=== PATIENT | male | born 1950 | race African-American/Black ===

== ENCOUNTER 2017-02-10 06:38 | Inpatient (IN) | payer OTHER, MEDICAID ==
[2017-02-10] VITALS (13 sets, daily range): BP systolic 137–166; BP diastolic 68–117
[~2017-02-10] VITALS: Ht 185.4 cm; Wt 106.6 kg
[~2017-02-10 06:38] MED LIST: ASPI-867 PO; CLOP75TA2 PO; DOCU250C69 PO; LISI-604 PO; SIMV20TA6 PO
[2017-02-10] MEDS ORDERED: METO50TA5 PO (07:32)
[2017-02-10] MEDS ORDERED: CILO100T PO (07:32)
[2017-02-10] MEDS ORDERED: HYDR-519 PO (08:08)
[2017-02-10] MEDS ORDERED: IODIXANOL 320MG/ML 100 ML BOTTLE IV ONE (08:20)
[2017-02-10] MEDS ORDERED: LIDOCAINE HCL 1% 20ML VIAL (Pyxis) INJ ONE (08:21)
[2017-02-10] MEDS ORDERED: FENTANYL CITRATE/PF 50MCG/ML 2ML VIAL ONE (08:22)
[2017-02-10] MEDS ORDERED: MIDAZOLAM HCL 5 MG/5 ML VIAL ONE (08:22)
[2017-02-10] MEDS ORDERED: HEPARIN SODIUM 1,000 UNIT/1ML VIAL IV ONE ×2 (09:26→09:40)
[2017-02-10] MEDS ORDERED: IOVERSOL 240MG/ML 100ML BOTTLE IV ONE (09:58)
[2017-02-10] MEDS ORDERED: CLOPIDOGREL 75MG TABLET ONE (10:31)
[2017-02-10] MEDS ORDERED: ACETAMINOPHEN 325MG TABLET PO PRN (10:45)
[2017-02-10] MEDS ORDERED: ATROPINE SULFATE 1MG/10ML SYR IV PRN (10:45)
[2017-02-10] MEDS: HYDROCODONE/ACETAMINOPHEN 10/325MG TABLET PO PRN ×2 (12:12→21:06)
[2017-02-10] MEDS: METOPROLOL TARTRATE 50MG TABLET PO SCH (16:17)
[2017-02-10] MEDS: DOCUSATE SODIUM 250MG CAPSULE PO SCH (16:17)
[2017-02-10] MEDS ORDERED: MEDICATION NOT ON FORMULARY EA (Simvastatin 20 MG) PO SCH (21:00)
[2017-02-10] MEDS ORDERED: ATORVASTATIN CALCIUM 10MG TABLET PO SCH (21:00)
[2017-02-11] VITALS (7 sets, daily range): BP systolic 137–166; BP diastolic 63–90
[2017-02-11 06:24] LABS: BASOPHILS % 0.6 % (0.0-2.0); EOSINOPHILS % 1.7 % (0.0-5.0); HEMATOCRIT. 36.1 % (42.0-52.0); HEMOGLOBIN. 12.3 g/dL (14.0-18.0); LYMPHOCYTES % 29.6 % (20.0-50.0); MEAN CORPUSCULAR HEMOGLOBIN 31.1 pg (28.0-32.0); MEAN CORPUSCULAR VOLUME 91.6 fL (80.0-94.0); NEUTROPHILS % 59.1 % (40.0-76.0); PLATELET 122 x1000/uL (130-400); RED BLOOD CELL COUNT 3.94 mill/uL (4.7-6.1); RED CELL DISTRIBUTION WIDTH 14.1 % (11.6-14.6); WHITE BLOOD COUNT 6.5 x1000/uL (4.5-11.0)
[2017-02-11 06:46] LABS: ANION GAP 9; CALCIUM 8.1 mg/dL (8.5-10.1); CARBON DIOXIDE 28 mEq/L (21-32); CHLORIDE 108 mEq/L (98-107); INDEX HEMOLYSI 1 (1-3); INDEX ICTERIC 1 (1-4); INDEX LIPEMIC 1 (1-3); UREA NITROGEN BLOOD 15 mg/dL (7-21); eGFR > 60 mL/min (>60)
[2017-02-11] MEDS: DOCUSATE SODIUM 250MG CAPSULE PO SCH (08:05)
[2017-02-11] MEDS: HYDROCODONE/ACETAMINOPHEN 10/325MG TABLET PO PRN (08:05)
[2017-02-11] MEDS: METOPROLOL TARTRATE 50MG TABLET PO SCH (08:06)
[2017-02-11] MEDS ORDERED: LISINOPRIL 20MG TABLET PO SCH (09:00)
[2017-02-11] MEDS ORDERED: CLOPIDOGREL 75MG TABLET PO SCH (09:00)
[2017-02-11] MEDS ORDERED: ASPIRIN 325MG EC TABLET PO SCH (09:00)
== END 2017-02-11 10:45 | disposition home or self-care (01) | DRG 253 ==
LOC: CCL 06:38 → 3WST 06:39
PROVIDERS: ADMIT Specialist; ATTEND Specialist
PROC: 047L3Z1 Dilation of Left Femoral Artery using Drug-Coated Balloon, Percutaneous Approach (ICD-10-PCS; principal; 2017-02-10)
DX: I73.9 Peripheral vascular disease, unspecified (principal); T82.856A Stenosis of peripheral vascular stent, initial encounter; E66.09 Other obesity due to excess calories; E78.5 Hyperlipidemia, unspecified; I13.10 Hypertensive heart and chronic kidney disease without heart failure, with stage 1 through stage 4 chronic kidney disease, or unspecified chronic kidney disease; I25.10 Atherosclerotic heart disease of native coronary artery without angina pectoris; I71.4 Abdominal aortic aneurysm, without rupture; N18.2 Chronic kidney disease, stage 2 (mild); Y83.8 Other surgical procedures as the cause of abnormal reaction of the patient, or of later complication, without mention of misadventure at the time of the procedure; Z79.02 Long term (current) use of antithrombotics/antiplatelets; Z79.82 Long term (current) use of aspirin; I25.2 Old myocardial infarction; Z87.891 Personal history of nicotine dependence; Z95.1 Presence of aortocoronary bypass graft; Z68.31 Body mass index [BMI] 31.0-31.9, adult; Z88.0 Allergy status to penicillin; Z91.010 Allergy to peanuts
CPT/HCPCS: 36415; 37224; 75710; 80048; 85025; 85347; C1725; C1760; C1769; C1893; C1894; J1644; J2250; J3010; J3490; Q9967

== ENCOUNTER 2017-04-14 10:43 | Day surgery (SDC) | payer OTHER, MEDICAID ==
[~2017-04-14] VITALS: Ht 185.4 cm; Wt 105.7 kg
[~2017-04-14 10:43] MED LIST changes: +CILO100T PO; +HYDR-519 PO; +METO50TA5 PO
[2017-04-14] MEDS ORDERED: OMEP40CA34 PO (11:38)
[2017-04-14] MEDS ORDERED: RA COL RITE PO (11:38)
[2017-04-14] MEDS ORDERED: HYDR25TA PO (11:38)
[2017-04-14] MEDS ORDERED: LOSA50TA20 PO (11:38)
[2017-04-14] MEDS ORDERED: eliquis PO (11:41)
[2017-04-14] MEDS ORDERED: IODIXANOL 320MG/ML 100 ML BOTTLE IV ONE (12:50)
[2017-04-14] MEDS ORDERED: LIDOCAINE HCL 1% 20ML VIAL (Pyxis) INJ ONE (12:50)
[2017-04-14] MEDS ORDERED: MIDAZOLAM HCL 2 MG/2 ML VIAL ONE (12:50)
[2017-04-14] MEDS ORDERED: FENTANYL CITRATE/PF 50MCG/ML 2ML VIAL ONE (12:50)
[2017-04-14] MEDS ORDERED: HYDROMORPHONE HCL/PF 2MG/ML (OR) ONE (13:07)
[2017-04-14] MEDS ORDERED: ACETAMINOPHEN 325MG TABLET PO PRN (14:00)
== END 2017-04-14 18:00 | disposition home or self-care (01) ==
LOC: CCL 10:43
PROVIDERS: ATTEND Specialist
DX: I70.211 Atherosclerosis of native arteries of extremities with intermittent claudication, right leg (principal); I73.89 Other specified peripheral vascular diseases; I25.10 Atherosclerotic heart disease of native coronary artery without angina pectoris; I10 Essential (primary) hypertension; E78.5 Hyperlipidemia, unspecified; E66.9 Obesity, unspecified; Z87.891 Personal history of nicotine dependence
CPT/HCPCS: 36246; 75710; C1760; C1769; C1893; J1170; J1644; J2250; J3010; J3490; Q9967

== ENCOUNTER 2018-10-26 09:59 | Inpatient (IN) | payer OTHER, MEDICAID ==
[~2018-10-26] VITALS: Ht 185.4 cm; Wt 89.2 kg
[~2018-10-26 09:59] MED LIST changes: +ASA5EC PO; -ASPI-867 PO; +CLOP75TA16 PO; -CLOP75TA2 PO; +HYDR25TA PO; +LOSA50TA20 PO; +METO-539 PO; -METO50TA5 PO; +OMEP40CA34 PO; +RA COL RITE PO
[2018-10-26] MEDS ORDERED: MORPHINE SULFATE 4 MG/ML CPJ (NOT FOR IM USE) IV ONE (13:15)
[2018-10-26] MEDS ORDERED: SODIUM CHLORIDE 0.9% 1,000 ML IV ONE (13:28)
[2018-10-26 14:11] LABS: CLARITY URINE CLEAR (CLEAR); COLOR URINE YELLOW (YELLOW); KETONES URINE NEGATIVE (NEGATIVE); LEUKOCYTE ESTERASE URINE TRACE (NEGATIVE); NITRITE URINE NEGATIVE (NEGATIVE); OCCULT BLOOD URINE NEGATIVE (NEGATIVE); PH URINE 5.5 (4.5-8.0); PROTEIN URINE NEGATIVE (NEGATIVE); SPECIFIC GRAVITY URINE 1.021 (1.005-1.030)
[2018-10-26] MEDS ORDERED: ONDANSETRON HCL 4MG/2ML INJ IV PRN (14:15)
[2018-10-26] MEDS ORDERED: DIPHENHYDRAMINE 50MG/ML VIAL IV PRN (14:15)
[2018-10-26] MEDS ORDERED: IPRATROPIUM/ALBUTEROL 0.5-3(2.5)MG/3ML NEB INH PRN (14:15)
[2018-10-26] MEDS ORDERED: ACETAMINOPHEN 650MG SUPP PR PRN (14:15)
[2018-10-26] MEDS ORDERED: LIDOCAINE HCL 1% 20ML VIAL (Pyxis) INJ ONE (15:45)
[2018-10-26 15:56] LABS: BASOPHILS % 0.6 % (0.0-2.0); EOSINOPHILS % 1.7 % (0.0-5.0); HEMATOCRIT. 35.4 % (42.0-52.0); HEMOGLOBIN. 12.2 g/dL (14.0-18.0); LYMPHOCYTES % 36.8 % (20.0-50.0); MEAN CORPUSCULAR VOLUME 93.1 fL (80.0-94.0); MEAN PLATELET VOLUME 7.6 fl (7.4-10.4); MONOCYTES % 9.9 % (2.0-8.0); PLATELET 131 x1000/uL (130-400); RED CELL DISTRIBUTION WIDTH 14.9 % (11.6-14.6)
[2018-10-26 16:02] LABS: CHLORIDE 106 mEq/L (98-107)
[2018-10-26 16:04] LABS: INR 1.1; PARTIAL THROMBOPLASTIN TIME 26.8 sec (23.4-31.0); PROTHROMBIN TIME 10.7 sec (9.1-11.1)
[2018-10-26] MEDS ORDERED: IODIXANOL 320MG/ML 100 ML BOTTLE IV ONE (18:24)
[2018-10-26 18:28] VITALS: BP 167/63
[2018-10-26] MEDS ORDERED: DEXT 5%/0.45% NACL 1000ML 1,000 ML IV SCH (18:30)
[2018-10-26] MEDS ORDERED: MIDAZOLAM HCL 2 MG/2 ML VIAL ONE (18:51)
[2018-10-26] MEDS ORDERED: FENTANYL CITRATE/PF 50MCG/ML 2ML VIAL ONE (18:52)
[2018-10-26] MEDS ORDERED: IOHEXOL-300 100 ML BOTTLE ONE (18:58)
[2018-10-26] MEDS ORDERED: ACETAMINOPHEN 325MG TABLET PO PRN (19:30)
[2018-10-26] MEDS ORDERED: ATROPINE SULFATE 1MG/10ML SYR IV PRN (19:30)
[2018-10-26 20:00] VITALS: BP 157/77
[2018-10-26 20:43] LABS: OPIATES URINE SCREEN NEGATIVE (NEGATIVE)
[2018-10-26 20:44] LABS: *AMPHETAMINES SCREEN URINE NEGATIVE (NEGATIVE); *BARBITURATES SCREEN URINE NEGATIVE (NEGATIVE); *BENZODIAZEPINES SCREEN URINE NEGATIVE (NEGATIVE); *COCAINE SCREEN URINE NEGATIVE (NEGATIVE); CANNABINOID URINE SCREEN PRESUMTIVE POSITIVE (NEGATIVE); PHENCYCLIDINE URINE SCREEN NEGATIVE (NEGATIVE)
[2018-10-26 20:45] LABS: METHADONE URINE SCREEN NEGATIVE (NEGATIVE)
[2018-10-26 21:00] VITALS: BP 139/68
[2018-10-26 22:00] VITALS: BP 129/68
[2018-10-26] MEDS: SODIUM CHLORIDE 0.45% 1,000 ML IV SCH (22:22)
[2018-10-26] MEDS: MORPHINE SULFATE 10 MG/ML CPJ IV PRN (22:22)
[2018-10-26 22:54] VITALS: BP 139/68
[2018-10-26 23:00] VITALS: BP 145/72
[2018-10-27] VITALS (11 sets, daily range): BP systolic 104–156; BP diastolic 57–76
[2018-10-27] MEDS ORDERED: LIDOCAINE HCL 1% 20ML VIAL (Pyxis) INJ ONE (07:30)
[2018-10-27] MEDS: SODIUM CHLORIDE 0.45% 1,000 ML IV SCH (07:30)
[2018-10-27] MEDS ORDERED: BACITRACIN 15GM TUBE TOP ONE (07:31)
[2018-10-27] MEDS ORDERED: BUPIVACAINE HCL/PF 0.5% (5MG/ML) 10ML ONE (07:31)
[2018-10-27] MEDS ORDERED: HEPARIN SODIUM 1,000 UNIT/1ML VIAL IV ONE ×2 (07:31→10:37)
[2018-10-27] MEDS ORDERED: NORMAL SALINE 0.9% 10 ML SYR ONE (07:31)
[2018-10-27] MEDS ORDERED: BACITRACIN 50,000 UNITS/VIAL ONE (07:32)
[2018-10-27] MEDS ORDERED: THROMBIN (BOVINE) 5000 UNITS/VIAL TOP ONE ×2 (07:32→09:37)
[2018-10-27] MEDS ORDERED: PAPAVERINE HCL 30 MG/ML 2ML IV ONE (07:34)
[2018-10-27 07:51] LABS: BASOPHILS % 0.4 % (0.0-2.0); EOSINOPHILS % 1.9 % (0.0-5.0); HEMATOCRIT. 35.6 % (42.0-52.0); HEMOGLOBIN. 12.2 g/dL (14.0-18.0); LYMPHOCYTES % 34.4 % (20.0-50.0); MEAN CORPUSCULAR HEMOGLOBIN 31.7 pg (28.0-32.0); MEAN CORPUSCULAR VOLUME 92.6 fL (80.0-94.0); MEAN PLATELET VOLUME 7.5 fl (7.4-10.4); MONOCYTES % 10.1 % (2.0-8.0); NEUTROPHILS % 53.2 % (40.0-76.0); PLATELET 133 x1000/uL (130-400); RED BLOOD CELL COUNT 3.84 mill/uL (4.7-6.1); RED CELL DISTRIBUTION WIDTH 14.8 % (11.6-14.6)
[2018-10-27] MEDS ORDERED: GELATIN SPONGE,ABSORBABLE 12-7MM SPONGE ONE ×2 (07:54→09:36)
[2018-10-27] MEDS: ASPIRIN 325MG TABLET PO SCH (09:00)
[2018-10-27] MEDS ORDERED: PROPOFOL 200MG/20ML VIAL IV ONE (09:03)
[2018-10-27] MEDS ORDERED: MIDAZOLAM HCL 2 MG/2 ML VIAL ONE (09:03)
[2018-10-27] MEDS ORDERED: FENTANYL CITRATE/PF 50MCG/ML 2ML VIAL ONE (09:03)
[2018-10-27] MEDS ORDERED: ROCURONIUM BROMIDE 10MG/ML VIAL 5ML IV ONE (09:04)
[2018-10-27] MEDS ORDERED: EPHEDRINE SULFATE 50MG/ML VIAL ONE (09:04)
[2018-10-27] MEDS ORDERED: SODIUM CHLORIDE 0.9% 10ML VIAL ONE ×2 (09:04→09:26)
[2018-10-27 09:26] LABS: CHLORIDE 106 mEq/L (98-107)
[2018-10-27] MEDS ORDERED: CEFAZOLIN SODIUM 1000MG/VIAL ONE (09:26)
[2018-10-27] MEDS ORDERED: LEVOFLOXACIN 500MG PREMIX 100 ML IV ONE (09:28)
[2018-10-27] MEDS ORDERED: HEPARIN 5000 UNITS/ML VIAL ONE (09:41)
[2018-10-27 09:43] LABS: LDL CHOLESTEROL 43 mg/dL (5-100)
[2018-10-27 09:44] LABS: HDL CHOLESTEROL 38 mg/dL (40-59); T4 FREE 0.89 ng/dL (0.76-1.46)
[2018-10-27] MEDS ORDERED: HEPARIN 1000 UNITS/ML 10ML ONE (09:46)
[2018-10-27] MEDS ORDERED: NEOSTIGMINE METHYLSULFATE 1MG/ML 10 ML VIAL ONE (11:07)
[2018-10-27] MEDS ORDERED: GLYCOPYRROLATE 0.2 MG/ML 2ML VIAL ONE (11:07)
[2018-10-27] MEDS ORDERED: MORPHINE SULFATE 4 MG/ML CPJ (NOT FOR IM USE) IV PRN (11:15)
[2018-10-27] MEDS ORDERED: HYDROMORPHONE HCL/PF 2MG/ML CPJ IV PRN (11:45)
[2018-10-27] MEDS: MORPHINE SULFATE 10 MG/ML CPJ IV PRN ×2 (13:37→19:56)
[2018-10-28] VITALS (12 sets, daily range): BP systolic 103–149; BP diastolic 51–79
[2018-10-28 07:20] LABS: CHLORIDE 104 mEq/L (98-107)
[2018-10-28 07:38] LABS: BASOPHILS % 0.3 % (0.0-2.0); EOSINOPHILS % 0.7 % (0.0-5.0); HEMATOCRIT. 34.3 % (42.0-52.0); HEMOGLOBIN. 11.9 g/dL (14.0-18.0); LYMPHOCYTES % 18.6 % (20.0-50.0); MEAN CORPUSCULAR HEMOGLOBIN 32.4 pg (28.0-32.0); MEAN CORPUSCULAR VOLUME 93.2 fL (80.0-94.0); MEAN PLATELET VOLUME 7.6 fl (7.4-10.4); NEUTROPHILS % 69.4 % (40.0-76.0); PLATELET 120 x1000/uL (130-400); RED BLOOD CELL COUNT 3.68 mill/uL (4.7-6.1); RED CELL DISTRIBUTION WIDTH 14.8 % (11.6-14.6)
[2018-10-28] MEDS: MORPHINE SULFATE 10 MG/ML CPJ IV PRN (07:45)
[2018-10-28] MEDS: ASPIRIN 325MG TABLET PO SCH ×2 (09:00→09:12)
[2018-10-28] MEDS: HYDROCODONE/ACETAMINOPHEN 10/325MG TABLET PO PRN ×3 (10:45→23:29)
[2018-10-28] MEDS ORDERED: HYDROMORPHONE HCL/PF 2MG/ML CPJ IV PRN (13:00)
[2018-10-28] MEDS: CLOPIDOGREL 75MG TABLET PO SCH (17:30)
[2018-10-29] VITALS (13 sets, daily range): BP systolic 103–146; BP diastolic 59–78
[2018-10-29] MEDS: HYDROCODONE/ACETAMINOPHEN 10/325MG TABLET PO PRN ×3 (06:26→21:10)
[2018-10-29] MEDS: CLOPIDOGREL 75MG TABLET PO SCH (07:59)
[2018-10-29] MEDS: ASPIRIN 325MG TABLET PO SCH (08:00)
[2018-10-29] MEDS ORDERED: LACTULOSE 20G/30ML UDC PO NR (09:00)
[2018-10-29] MEDS: DOCUSATE SODIUM 250MG CAPSULE PO SCH (09:52)
[2018-10-29] MEDS ORDERED: LACTULOSE 20G/30ML UDC PO SCH (21:00)
[2018-10-30] VITALS (11 sets, daily range): BP systolic 109–137; BP diastolic 37–80
[2018-10-30] MEDS: HYDROCODONE/ACETAMINOPHEN 10/325MG TABLET PO PRN ×2 (03:05→12:25)
[2018-10-30 06:48] LABS: BASOPHILS % 0.2 % (0.0-2.0); EOSINOPHILS % 1.1 % (0.0-5.0); HEMATOCRIT. 31.2 % (42.0-52.0); HEMOGLOBIN. 10.7 g/dL (14.0-18.0); MEAN CORPUSCULAR HEMOGLOBIN 31.6 pg (28.0-32.0); MEAN CORPUSCULAR VOLUME 92.2 fL (80.0-94.0); MEAN PLATELET VOLUME 7.5 fl (7.4-10.4); MONOCYTES % 12.3 % (2.0-8.0); NEUTROPHILS % 63.4 % (40.0-76.0); PLATELET 118 x1000/uL (130-400); RED BLOOD CELL COUNT 3.38 mill/uL (4.7-6.1); RED CELL DISTRIBUTION WIDTH 14.5 % (11.6-14.6)
[2018-10-30 07:33] LABS: CHLORIDE 103 mEq/L (98-107)
[2018-10-30] MEDS: ASPIRIN 325MG TABLET PO SCH (09:00)
[2018-10-30] MEDS: DOCUSATE SODIUM 250MG CAPSULE PO SCH (09:00)
[2018-10-30] MEDS: CLOPIDOGREL 75MG TABLET PO SCH (09:06)
== END 2018-10-30 18:27 | disposition home health service (06) | DRG 253 ==
LOC: ER 09:59 → SUPCPDRO 13:45 → 3WST 13:52 → ENRESERV 18:01
PROVIDERS: ADMIT Internal Medicine; ATTEND Internal Medicine
PROC: B41F1ZZ Fluoroscopy of Right Lower Extremity Arteries using Low Osmolar Contrast (ICD-10-PCS; principal; 2018-10-26)
PROC: 041K0KN Bypass Right Femoral Artery to Posterior Tibial Artery with Nonautologous Tissue Substitute, Open Approach (ICD-10-PCS; 2018-10-27)
PROC: 04CK0ZZ Extirpation of Matter from Right Femoral Artery, Open Approach (ICD-10-PCS; 2018-10-27)
DX: T82.898A Other specified complication of vascular prosthetic devices, implants and grafts, initial encounter (principal); I70.92 Chronic total occlusion of artery of the extremities; I73.9 Peripheral vascular disease, unspecified; H40.9 Unspecified glaucoma; I11.9 Hypertensive heart disease without heart failure; I99.8 Other disorder of circulatory system; E78.5 Hyperlipidemia, unspecified; F12.90 Cannabis use, unspecified, uncomplicated; F80.81 Childhood onset fluency disorder; H26.9 Unspecified cataract; I25.10 Atherosclerotic heart disease of native coronary artery without angina pectoris; Y83.2 Surgical operation with anastomosis, bypass or graft as the cause of abnormal reaction of the patient, or of later complication, without mention of misadventure at the time of the procedure; I25.2 Old myocardial infarction; Z87.891 Personal history of nicotine dependence; Z88.0 Allergy status to penicillin; Z88.8 Allergy status to other drugs, medicaments and biological substances; Z95.1 Presence of aortocoronary bypass graft; Z91.010 Allergy to peanuts; Z79.1 Long term (current) use of non-steroidal anti-inflammatories (NSAID); Z79.82 Long term (current) use of aspirin; Z79.899 Other long term (current) drug therapy; Y92.89 Other specified places as the place of occurrence of the external cause
CPT/HCPCS: 36415; 71045; 75710; 80048; 80061; 80305; 83036; 84439; 84443; 86850; 86900; 93005; 93306; 93922; 93971; 96360; 97116; 97162; 99285; A4216; C1760; C1768; C1769; C1884; C1893; J0690; J1170; J1200; J1644; J1956; J2250; J2270; J2440; J2704; J2710; J3010; J3490; J7030; J7040; Q9967

== ENCOUNTER 2018-11-01 23:58 | Emergency (ER) | payer OTHER, MEDICAID ==
[~2018-11-01] VITALS: Ht 185.4 cm; Wt 91.0 kg
[2018-11-02 02:42] VITALS: BP 133/79
== END 2018-11-02 02:43 | disposition home or self-care (01) ==
LOC: ER 23:58
DX: Z48.01 Encounter for change or removal of surgical wound dressing (principal); I10 Essential (primary) hypertension; I73.9 Peripheral vascular disease, unspecified; I25.2 Old myocardial infarction; F12.10 Cannabis abuse, uncomplicated; Z95.1 Presence of aortocoronary bypass graft; Z98.890 Other specified postprocedural states; Z87.891 Personal history of nicotine dependence; Z88.0 Allergy status to penicillin; Z88.8 Allergy status to other drugs, medicaments and biological substances; Z91.010 Allergy to peanuts; Z79.899 Other long term (current) drug therapy
CPT/HCPCS: 99283

== ENCOUNTER 2019-08-23 22:17 | Inpatient (IN) | payer OTHER, MEDICAID, MEDICARE ==
[~2019-08-23] VITALS: Ht 185.4 cm; Wt 76.2 kg
[~2019-08-23 22:17] MED LIST changes: -ASA5EC PO; +ASPI325T85 PO; -CLOP75TA16 PO; +CLOP75TA4 PO; -LOSA50TA20 PO; +LOSA50TA41 PO
[2019-08-24] VITALS (14 sets, daily range): BP systolic 82–140; BP diastolic 30–63
[2019-08-24] MEDS ORDERED: ACET-2853 MT (00:06)
[2019-08-24] MEDS ORDERED: AMLO-337 MT (00:06)
[2019-08-24] MEDS ORDERED: BISA10SU62 RC (00:07)
[2019-08-24] MEDS ORDERED: ASCO500C15 PO (00:07)
[2019-08-24] MEDS ORDERED: DOCU-150 MT (00:09)
[2019-08-24] MEDS ORDERED: CHOL100046 PO (00:09)
[2019-08-24] MEDS ORDERED: FAMO20TA8 MT (00:10)
[2019-08-24] MEDS ORDERED: DORZ10DR8 EACHEYE (00:10)
[2019-08-24] MEDS ORDERED: TIMO5DRO32 EACHEYE (00:23)
[2019-08-24] MEDS ORDERED: ONDA4AMP IJ (00:23)
[2019-08-24] MEDS ORDERED: GABA-529 MT (00:23)
[2019-08-24] MEDS ORDERED: FERR325T6 MT (00:23)
[2019-08-24] MEDS ORDERED: HYDR-4009 MT (00:23)
[2019-08-24] MEDS ORDERED: TAMS-11 MT (00:23)
[2019-08-24] MEDS ORDERED: LACT10SO6 PO (00:23)
[2019-08-24] MEDS ORDERED: BISACODYL 10MG SUPP PR PRN (00:30)
[2019-08-24] MEDS ORDERED: ONDANSETRON HCL 4MG TABLET PO PRN (00:30)
[2019-08-24 01:39] LABS: HEMATOCRIT 22.6 % (42.0-52.0); HEMOGLOBIN 7.6 g/dL (14.0-18.0)
[2019-08-24] MEDS: HYDROCODONE/ACETAMINOPHEN 10/325MG TABLET PO PRN (02:35)
[2019-08-24] MEDS: DEXT 5%/0.9% NACL 1,000 ML IV SCH ×2 (02:50→17:28)
[2019-08-24] MEDS ORDERED: CEFEPIME HCL 1000MG/VIAL INJ IM SCH (03:00)
[2019-08-24] MEDS: HYDRALAZINE HCL 25MG TABLET PO SCH ×2 (06:00→17:29)
[2019-08-24] MEDS: CEFEPIME 500 MG in DEXTROSE 5% WATER 50 ML IV SCH (06:15)
[2019-08-24] MEDS ORDERED: ACETAMINOPHEN 325MG TABLET PO PRN (07:30)
[2019-08-24] MEDS ORDERED: VANCOMYCIN 1 G PREMIX 200 ML IV NR (08:00)
[2019-08-24] MEDS ORDERED: LIDOCAINE HCL 1% 20ML VIAL (Pyxis) INJ ONE (08:09)
[2019-08-24] MEDS ORDERED: THROMBIN (BOVINE) 5000 UNITS/VIAL TOP ONE (08:09)
[2019-08-24] MEDS ORDERED: BACITRACIN 15GM TUBE TOP ONE (08:09)
[2019-08-24] MEDS ORDERED: NORMAL SALINE 0.9% 10 ML SYR ONE (08:10)
[2019-08-24] MEDS ORDERED: BACITRACIN 50,000 UNITS/VIAL ONE (08:10)
[2019-08-24] MEDS ORDERED: BUPIVACAINE HCL 0.5% (5MG/ML) 50ML ONE (08:10)
[2019-08-24] MEDS ORDERED: HEPARIN SODIUM 1,000 UNIT/1ML VIAL IV ONE ×2 (08:10→12:57)
[2019-08-24] MEDS ORDERED: TIMOLOL MALEATE 0.5% OPHTH DROPS 5ML EACHEYE SCH (09:00)
[2019-08-24] MEDS ORDERED: DOCUSATE SODIUM 100MG CAPSULE PO PRN (09:00)
[2019-08-24] MEDS: AMLODIPINE 10MG TABLET PO SCH (09:00)
[2019-08-24 09:22] LABS: BASOPHILS % 0.4 % (0.0-2.0); EOSINOPHILS % 1.1 % (0.0-5.0); HEMATOCRIT. 26.6 % (42.0-52.0); HEMOGLOBIN. 9.1 g/dL (14.0-18.0); MEAN CORPUSCULAR HEMOGLOBIN 30.5 pg (28.0-32.0); MEAN CORPUSCULAR VOLUME 89.5 fL (80.0-94.0); MEAN PLATELET VOLUME 6.4 fl (7.4-10.4); MONOCYTES % 6.6 % (2.0-8.0); NEUTROPHILS % 79.9 % (40.0-76.0); PLATELET 249 x1000/uL (130-400); RED BLOOD CELL COUNT 2.97 mill/uL (4.7-6.1); RED CELL DISTRIBUTION WIDTH 15.7 % (11.6-14.6)
[2019-08-24] MEDS ORDERED: LACTULOSE 20G/30ML UDC PO PRN (09:30)
[2019-08-24] MEDS ORDERED: ROCURONIUM BROMIDE 10MG/ML VIAL 5ML IV ONE (10:46)
[2019-08-24] MEDS ORDERED: FENTANYL CITRATE/PF 50MCG/ML 2ML VIAL ONE ×2 (10:46→12:42)
[2019-08-24] MEDS ORDERED: EPHEDRINE SULFATE 50MG/ML VIAL ONE (10:47)
[2019-08-24] MEDS ORDERED: METOCLOPRAMIDE HCL 10MG/2ML VIAL ONE (10:47)
[2019-08-24] MEDS ORDERED: ONDANSETRON HCL 4MG/2ML INJ ONE (10:47)
[2019-08-24] MEDS ORDERED: SODIUM CHLORIDE 0.9% 10ML VIAL ONE (10:47)
[2019-08-24] MEDS ORDERED: MIDAZOLAM HCL 2 MG/2 ML VIAL ONE (10:47)
[2019-08-24] MEDS ORDERED: LIDOCAINE HCL/PF 1% 10 MG/ML 5ML VIAL ONE (10:47)
[2019-08-24] MEDS ORDERED: CEFAZOLIN SODIUM 1000MG/VIAL ONE (10:47)
[2019-08-24] MEDS ORDERED: PROPOFOL 200MG/20ML VIAL IV ONE (10:47)
[2019-08-24] MEDS ORDERED: NEOSTIGMINE METHYLSULFATE 1MG/ML 10 ML VIAL ONE (10:47)
[2019-08-24] MEDS ORDERED: GLYCOPYRROLATE 0.2 MG/ML 2ML VIAL ONE (10:47)
[2019-08-24] MEDS ORDERED: PHENYLEPHRINE HCL 10 MG/ML 1ML (IV VIAL) IV ONE (10:47)
[2019-08-24] MEDS ORDERED: SUCCINYLCHOLINE CHLORIDE 200MG/10ML IV ONE (10:47)
[2019-08-24] MEDS ORDERED: DEXTROSE 50% WATER 50ML SYRINGE IV PRN (11:00)
[2019-08-24] MEDS ORDERED: HEPARIN 1000 UNITS/ML 10ML ONE (12:04)
[2019-08-24] MEDS ORDERED: PROTAMINE SULFATE 10MG/ML VIAL 5ML IV ONE (13:34)
[2019-08-24] MEDS ORDERED: SODIUM CHLORIDE 0.9% 1,000 ML IV ONE (14:09)
[2019-08-24] MEDS ORDERED: MORPHINE SULFATE 2 MG/ML CPJ (NOT FOR IM USE) IV PRN (14:15)
[2019-08-24] MEDS ORDERED: HYDROMORPHONE HCL/PF 2MG/ML CPJ IV PRN (14:15)
[2019-08-24] MEDS ORDERED: MEPERIDINE HCL/PF 25MG/ML CPJ IV PRN (14:15)
[2019-08-24] MEDS ORDERED: ONDANSETRON HCL 4MG/2ML INJ IV PRN (14:15)
[2019-08-24 14:31] LABS: HEMATOCRIT. 27.9 % (42.0-52.0); HEMOGLOBIN. 9.5 g/dL (14.0-18.0); MEAN CORPUSCULAR HEMOGLOBIN 30.2 pg (28.0-32.0); MEAN CORPUSCULAR VOLUME 88.8 fL (80.0-94.0); MEAN PLATELET VOLUME 6.6 fl (7.4-10.4); PLATELET 199 x1000/uL (130-400); RED BLOOD CELL COUNT 3.14 mill/uL (4.7-6.1); RED CELL DISTRIBUTION WIDTH 15.8 % (11.6-14.6)
[2019-08-24 14:35] LABS: CHLORIDE 112 mEq/L (98-107)
[2019-08-24] MEDS ORDERED: CALCIUM CHLORIDE 1GM/10ML SYR IV ONE (15:07)
[2019-08-24] MEDS ORDERED: CALCIUM CHLORIDE 1GM/10ML SYR IV NR (15:15)
[2019-08-24] MEDS: BLOOD SUGAR DIAGNOSTIC STRIP TEST SCH ×2 (16:50→20:59)
[2019-08-24] MEDS ORDERED: LORAZEPAM 2MG/ML CPJ IV NR ×2 (16:54→16:59)
[2019-08-24] MEDS ORDERED: DEXTROSE 50% WATER 50ML SYRINGE IV NR (17:00)
[2019-08-24] MEDS ORDERED: IPRATROPIUM/ALBUTEROL 0.5-3(2.5)MG/3ML NEB HHN NR (17:00)
[2019-08-24] MEDS ORDERED: SODIUM BICARBONATE 8.4% 1 MEQ/ML 50ML SYR IV NR (17:00)
[2019-08-24 17:10] LABS: PLATELET ESTIMATE NORMAL
[2019-08-24] MEDS: FERROUS SULFATE 325MG TABLET PO SCH (17:20)
[2019-08-24] MEDS: INSULIN LISPRO 100 UNITS/ML SUBCUT SCH ×2 (17:20→20:59)
[2019-08-24 17:24] LABS: BG BASE EXCESS -4.4 mmol/L (-2.0-2.0); BG CARBOXYHEMOGLOBIN 0.3 % (0.5-1.5); BG DEOXYHEMOGLOBIN 6.5 % (0.0-5.0); BG FRACTION INSPIRED OXYGEN 21; BG HCO3 ACT 19.3 mmol/L (22.0-26.0); BG METHEMOGLOBIN 0.4 % (0.0-1.5); BG OXYGEN SATURATION 93.5 % (92.0-98.5); BG OXYHEMOGLOBIN 92.8 % (94.0-97.0); BG PCO2 30.2 mmHg (35.0-45.0); BG PH 7.423 (7.350-7.450); BG PO2 65.5 mmHg (75.0-100.0); BG SAMPLE SITE RIGHT BRACHIAL; BG TOTAL HEMOGLOBIN 8.9 g/dL (12.0-18.0); BG VENT MODE ROOM AIR
[2019-08-24] MEDS ORDERED: HYDROCODONE/ACETAMINOPHEN 5/325MG TABLET PO PRN (17:30)
[2019-08-24] MEDS: FAMOTIDINE 20MG TABLET PO SCH (17:30)
[2019-08-24] MEDS: ASCORBIC ACID 500 MG TABLET PO SCH ×2 (17:30→20:16)
[2019-08-24] MEDS ORDERED: LORAZEPAM 2MG/ML CPJ IV PRN (17:30)
[2019-08-24] MEDS: CHOLECALCIFEROL (D3) 1000 UNIT TABLET PO SCH (17:30)
[2019-08-24] MEDS: DORZOLAM/TIMOLOL 2.23/0.68% OPHTH DROPS 10ML BOTHEYE SCH ×2 (17:31→20:58)
[2019-08-24] MEDS: GABAPENTIN 100MG CAPSULE PO SCH ×2 (17:31→21:11)
[2019-08-24] MEDS: TAMSULOSIN HCL 0.4MG SR CAPSULE PO SCH (17:31)
[2019-08-24] MEDS ORDERED: INSULIN REGULAR (HUMULIN R) 300UNITS/3ML IV NR (18:00)
[2019-08-24] MEDS ORDERED: SODIUM POLYSTYRENE SULFONATE 15 G/60 ML BOT PO NR (18:00)
[2019-08-24] MEDS: ATORVASTATIN CALCIUM 40MG TABLET PO SCH (20:16)
[2019-08-24 21:38] LABS: HEMATOCRIT 25.4 % (42.0-52.0); HEMOGLOBIN 8.6 g/dL (14.0-18.0)
[2019-08-24 21:41] LABS: INR 1.2; PROTHROMBIN TIME 12.8 sec (9.6-11.0)
[2019-08-25] VITALS (21 sets, daily range): BP systolic 85–127; BP diastolic 37–58
[2019-08-25] MEDS: HYDRALAZINE HCL 25MG TABLET PO SCH ×4 (00:34→17:30)
[2019-08-25] MEDS: DEXT 5%/0.9% NACL 1,000 ML IV SCH (04:48)
[2019-08-25] MEDS: GABAPENTIN 100MG CAPSULE PO SCH ×3 (05:45→21:51)
[2019-08-25] MEDS: VANCOMYCIN 750 MG PREMIX 150 ML IV SCH (05:46)
[2019-08-25] MEDS ORDERED: LIDOCAINE HCL 1% 20ML VIAL (Pyxis) INJ ONE (07:05)
[2019-08-25] MEDS: INSULIN LISPRO 100 UNITS/ML SUBCUT SCH ×4 (07:20→21:00)
[2019-08-25] MEDS: BLOOD SUGAR DIAGNOSTIC STRIP TEST SCH ×4 (07:31→21:17)
[2019-08-25] MEDS: FERROUS SULFATE 325MG TABLET PO SCH ×3 (07:32→17:36)
[2019-08-25] MEDS: CEFEPIME 500 MG in DEXTROSE 5% WATER 50 ML IV SCH (07:33)
[2019-08-25 07:58] LABS: T4 FREE 0.99 ng/dL (0.76-1.46)
[2019-08-25] MEDS: CHOLECALCIFEROL (D3) 1000 UNIT TABLET PO SCH (08:53)
[2019-08-25] MEDS: DORZOLAM/TIMOLOL 2.23/0.68% OPHTH DROPS 10ML BOTHEYE SCH ×2 (08:53→21:16)
[2019-08-25] MEDS: AMLODIPINE 10MG TABLET PO SCH ×3 (08:53→10:02)
[2019-08-25] MEDS: FAMOTIDINE 20MG TABLET PO SCH (08:53)
[2019-08-25] MEDS: TAMSULOSIN HCL 0.4MG SR CAPSULE PO SCH (08:54)
[2019-08-25] MEDS: ASCORBIC ACID 500 MG TABLET PO SCH ×2 (08:54→21:08)
[2019-08-25] MEDS ORDERED: MORPHINE SULFATE 2 MG/ML CPJ (NOT FOR IM USE) IV ONE (12:50)
[2019-08-25 14:15] LABS: HEMATOCRIT. 21.8 % (42.0-52.0); HEMOGLOBIN. 7.5 g/dL (14.0-18.0); MEAN CORPUSCULAR HEMOGLOBIN 30.2 pg (28.0-32.0); MEAN CORPUSCULAR VOLUME 88.2 fL (80.0-94.0); PLATELET 162 x1000/uL (130-400); RED BLOOD CELL COUNT 2.47 mill/uL (4.7-6.1); RED CELL DISTRIBUTION WIDTH 16.3 % (11.6-14.6)
[2019-08-25 17:08] LABS: CLARITY URINE CLOUDY (CLEAR); COLOR URINE YELLOW (YELLOW); KETONES URINE NEGATIVE (NEGATIVE); LEUKOCYTE ESTERASE URINE 1+ (NEGATIVE); NITRITE URINE NEGATIVE (NEGATIVE); OCCULT BLOOD URINE 3+ (NEGATIVE); PH URINE 5.5 (4.5-8.0); PROTEIN URINE 1+ (NEGATIVE); SPECIFIC GRAVITY URINE 1.012 (1.005-1.030)
[2019-08-25 17:52] LABS: PLATELET ESTIMATE NORMAL
[2019-08-25] MEDS ORDERED: CEFEPIME 1,000 MG in DEXTROSE 5% WATER 50 ML IV SCH (18:00)
[2019-08-25] MEDS: SODIUM CHLORIDE 0.9% 1,000 ML IV SCH (18:36)
[2019-08-25] MEDS: ATORVASTATIN CALCIUM 40MG TABLET PO SCH (21:08)
[2019-08-25] MEDS: MORPHINE SULFATE 2 MG/ML CPJ (NOT FOR IM USE) IV PRN (21:09)
[2019-08-25 21:34] LABS: HEMATOCRIT 26.6 % (42.0-52.0); HEMOGLOBIN 8.7 g/dL (14.0-18.0)
[2019-08-25 21:45] LABS: INR 1.3
[2019-08-25] MEDS: FLUCONAZOLE 200 MG/100ML BAG 100 MG in CONTAINER,EMPTY 0 BAG IV SCH (21:51)
[2019-08-25] MEDS: MEROPENEM 1,000 MG in SODIUM CHLORIDE 0.9% 100 ML IV SCH (21:51)
[2019-08-26] MEDS: VANCOMYCIN 750 MG PREMIX 150 ML IV SCH (00:16)
[2019-08-26] MEDS: HYDRALAZINE HCL 25MG TABLET PO SCH ×4 (00:17→18:00)
[2019-08-26 04:00] VITALS: BP 102/48
[2019-08-26] MEDS: BLOOD SUGAR DIAGNOSTIC STRIP TEST SCH ×4 (05:45→20:51)
[2019-08-26] MEDS: GABAPENTIN 100MG CAPSULE PO SCH ×3 (05:45→21:32)
[2019-08-26] MEDS: INSULIN LISPRO 100 UNITS/ML SUBCUT SCH ×4 (05:46→21:00)
[2019-08-26] MEDS: FERROUS SULFATE 325MG TABLET PO SCH ×3 (07:40→17:18)
[2019-08-26 08:00] VITALS: BP 108/59
[2019-08-26] MEDS: DORZOLAM/TIMOLOL 2.23/0.68% OPHTH DROPS 10ML BOTHEYE SCH ×2 (09:00→21:32)
[2019-08-26] MEDS: AMLODIPINE 10MG TABLET PO SCH (09:00)
[2019-08-26 09:15] LABS: HEMATOCRIT. 24.3 % (42.0-52.0); HEMOGLOBIN. 8.2 g/dL (14.0-18.0); MEAN CORPUSCULAR HEMOGLOBIN 29.3 pg (28.0-32.0); MEAN CORPUSCULAR VOLUME 87.1 fL (80.0-94.0); MEAN PLATELET VOLUME 7.1 fl (7.4-10.4); PLATELET 132 x1000/uL (130-400); RED BLOOD CELL COUNT 2.79 mill/uL (4.7-6.1); RED CELL DISTRIBUTION WIDTH 16.5 % (11.6-14.6)
[2019-08-26] MEDS: MEROPENEM 1,000 MG in SODIUM CHLORIDE 0.9% 100 ML IV SCH ×2 (09:40→21:32)
[2019-08-26] MEDS: ASCORBIC ACID 500 MG TABLET PO SCH ×2 (09:41→20:43)
[2019-08-26] MEDS: CHOLECALCIFEROL (D3) 1000 UNIT TABLET PO SCH (09:42)
[2019-08-26] MEDS: FAMOTIDINE 20MG TABLET PO SCH (09:42)
[2019-08-26] MEDS: TAMSULOSIN HCL 0.4MG SR CAPSULE PO SCH (09:42)
[2019-08-26 10:31] LABS: PLATELET ESTIMATE NORMAL
[2019-08-26 12:00] VITALS: BP 115/69
[2019-08-26] MEDS: HYDROCODONE/ACETAMINOPHEN 10/325MG TABLET PO PRN (12:59)
[2019-08-26] MEDS: MORPHINE SULFATE 2 MG/ML CPJ (NOT FOR IM USE) IV PRN ×2 (13:42→20:46)
[2019-08-26] MEDS: SODIUM CHLORIDE 0.9% 1,000 ML IV SCH (15:30)
[2019-08-26 16:00] VITALS: BP 110/55
[2019-08-26] MEDS: VANCOMYCIN 500 MG PREMIX 100 ML IV SCH (17:57)
[2019-08-26 19:59] LABS: HEMATOCRIT 24.7 % (42.0-52.0); HEMOGLOBIN 8.2 g/dL (14.0-18.0)
[2019-08-26 20:00] VITALS: BP 116/58
[2019-08-26] MEDS: ATORVASTATIN CALCIUM 40MG TABLET PO SCH (20:43)
[2019-08-26] MEDS: FLUCONAZOLE 200 MG/100ML BAG 100 MG in CONTAINER,EMPTY 0 BAG IV SCH (22:58)
[2019-08-27] VITALS: BP 109/53
[2019-08-27 04:00] VITALS: BP 112/56
[2019-08-27] MEDS: GABAPENTIN 100MG CAPSULE PO SCH ×3 (05:42→20:57)
[2019-08-27] MEDS: VANCOMYCIN 500 MG PREMIX 100 ML IV SCH ×2 (05:42→17:18)
[2019-08-27] MEDS: HYDRALAZINE HCL 25MG TABLET PO SCH ×5 (05:42→18:00)
[2019-08-27] MEDS: MORPHINE SULFATE 2 MG/ML CPJ (NOT FOR IM USE) IV PRN ×2 (06:05→18:48)
[2019-08-27] MEDS: BLOOD SUGAR DIAGNOSTIC STRIP TEST SCH ×4 (06:30→20:58)
[2019-08-27] MEDS: INSULIN LISPRO 100 UNITS/ML SUBCUT SCH ×4 (06:51→20:58)
[2019-08-27 07:13] LABS: BASOPHILS % 0.2 % (0.0-2.0); HEMATOCRIT. 23.8 % (42.0-52.0); LYMPHOCYTES % 10.3 % (20.0-50.0); MEAN CORPUSCULAR HEMOGLOBIN 29.6 pg (28.0-32.0); MEAN CORPUSCULAR VOLUME 87.7 fL (80.0-94.0); MEAN PLATELET VOLUME 7.5 fl (7.4-10.4); MONOCYTES % 5.6 % (2.0-8.0); NEUTROPHILS % 81.9 % (40.0-76.0); PLATELET 128 x1000/uL (130-400); RED BLOOD CELL COUNT 2.72 mill/uL (4.7-6.1); RED CELL DISTRIBUTION WIDTH 15.9 % (11.6-14.6)
[2019-08-27 08:00] VITALS: BP 110/53
[2019-08-27] MEDS: DORZOLAM/TIMOLOL 2.23/0.68% OPHTH DROPS 10ML BOTHEYE SCH ×2 (08:53→20:57)
[2019-08-27] MEDS: FERROUS SULFATE 325MG TABLET PO SCH ×3 (08:54→17:20)
[2019-08-27] MEDS: FAMOTIDINE 20MG TABLET PO SCH (08:54)
[2019-08-27] MEDS: ASCORBIC ACID 500 MG TABLET PO SCH ×2 (08:54→20:56)
[2019-08-27] MEDS: TAMSULOSIN HCL 0.4MG SR CAPSULE PO SCH (08:54)
[2019-08-27] MEDS ORDERED: AMLODIPINE 5MG TABLET PO SCH (09:00)
[2019-08-27] MEDS ORDERED: LOSARTAN POTASSIUM 50 MG TABLET PO SCH (09:00)
[2019-08-27] MEDS: CHOLECALCIFEROL (D3) 1000 UNIT TABLET PO SCH (10:23)
[2019-08-27] MEDS: MEROPENEM 1,000 MG in SODIUM CHLORIDE 0.9% 100 ML IV SCH ×2 (10:24→20:57)
[2019-08-27 12:00] VITALS: BP 113/53
[2019-08-27] MEDS: SODIUM CHLORIDE 0.9% 1,000 ML IV SCH (15:30)
[2019-08-27 16:00] VITALS: BP 109/57
[2019-08-27 20:00] VITALS: BP 106/48
[2019-08-27] MEDS: ATORVASTATIN CALCIUM 40MG TABLET PO SCH (20:57)
[2019-08-27] MEDS: FLUCONAZOLE 200 MG/100ML BAG 100 MG in CONTAINER,EMPTY 0 BAG IV SCH (20:58)
[2019-08-28] VITALS: BP 104/48
[2019-08-28] MEDS: MORPHINE SULFATE 2 MG/ML CPJ (NOT FOR IM USE) IV PRN (00:43)
[2019-08-28] MEDS: VANCOMYCIN 500 MG PREMIX 100 ML IV SCH (03:18)
[2019-08-28 04:00] VITALS: BP 115/55
[2019-08-28] MEDS: HYDRALAZINE HCL 25MG TABLET PO SCH ×5 (05:22→23:42)
[2019-08-28] MEDS: GABAPENTIN 100MG CAPSULE PO SCH ×3 (05:23→22:04)
[2019-08-28] MEDS: BLOOD SUGAR DIAGNOSTIC STRIP TEST SCH ×4 (06:00→21:59)
[2019-08-28 07:01] LABS: BASOPHILS % 0.3 % (0.0-2.0); EOSINOPHILS % 2.6 % (0.0-5.0); HEMATOCRIT. 23.9 % (42.0-52.0); HEMOGLOBIN. 8.1 g/dL (14.0-18.0); LYMPHOCYTES % 13.4 % (20.0-50.0); MEAN CORPUSCULAR VOLUME 88.4 fL (80.0-94.0); MEAN PLATELET VOLUME 7.3 fl (7.4-10.4); MONOCYTES % 5.5 % (2.0-8.0); NEUTROPHILS % 78.2 % (40.0-76.0); PLATELET 142 x1000/uL (130-400); RED CELL DISTRIBUTION WIDTH 15.6 % (11.6-14.6)
[2019-08-28] MEDS: INSULIN LISPRO 100 UNITS/ML SUBCUT SCH ×4 (07:40→21:00)
[2019-08-28 07:54] VITALS: BP 100/53
[2019-08-28] MEDS: CHOLECALCIFEROL (D3) 1000 UNIT TABLET PO SCH (08:51)
[2019-08-28] MEDS: FERROUS SULFATE 325MG TABLET PO SCH ×3 (08:51→17:59)
[2019-08-28] MEDS: DORZOLAM/TIMOLOL 2.23/0.68% OPHTH DROPS 10ML BOTHEYE SCH ×2 (08:51→21:59)
[2019-08-28] MEDS: FAMOTIDINE 20MG TABLET PO SCH (08:51)
[2019-08-28] MEDS: ASCORBIC ACID 500 MG TABLET PO SCH ×2 (08:51→21:59)
[2019-08-28] MEDS: TAMSULOSIN HCL 0.4MG SR CAPSULE PO SCH (10:44)
[2019-08-28] MEDS: MEROPENEM 1,000 MG in SODIUM CHLORIDE 0.9% 100 ML IV SCH (10:47)
[2019-08-28 12:00] VITALS: BP 118/73
[2019-08-28 16:00] VITALS: BP 113/47
[2019-08-28] MEDS: SODIUM CHLORIDE 0.9% 1,000 ML IV SCH (17:59)
[2019-08-28] MEDS: CEFTAZIDIME PENTAHYDRATE 1 G in DEXTROSE 5% WATER 50 ML IV SCH (17:59)
[2019-08-28] MEDS ORDERED: VANCOMYCIN 500 MG PREMIX 100 ML IV SCH (18:00)
[2019-08-28 20:00] VITALS: BP 99/48
[2019-08-28] MEDS: ATORVASTATIN CALCIUM 40MG TABLET PO SCH (21:59)
[2019-08-29] VITALS: BP 105/66
[2019-08-29] MEDS: MORPHINE SULFATE 2 MG/ML CPJ (NOT FOR IM USE) IV PRN ×2 (01:33→08:34)
[2019-08-29 04:00] VITALS: BP 109/51
[2019-08-29] MEDS ORDERED: VANCOMYCIN 1 G PREMIX 200 ML IV SCH (04:00)
[2019-08-29] MEDS: HYDRALAZINE HCL 25MG TABLET PO SCH ×3 (05:46→18:00)
[2019-08-29] MEDS: GABAPENTIN 100MG CAPSULE PO SCH ×2 (06:00→13:00)
[2019-08-29] MEDS: BLOOD SUGAR DIAGNOSTIC STRIP TEST SCH ×3 (07:10→16:52)
[2019-08-29 07:21] LABS: BASOPHILS % 0.4 % (0.0-2.0); EOSINOPHILS % 2.1 % (0.0-5.0); HEMATOCRIT. 24.1 % (42.0-52.0); HEMOGLOBIN. 8.1 g/dL (14.0-18.0); LYMPHOCYTES % 13.6 % (20.0-50.0); MEAN CORPUSCULAR HEMOGLOBIN 29.7 pg (28.0-32.0); MEAN CORPUSCULAR VOLUME 88.7 fL (80.0-94.0); MEAN PLATELET VOLUME 7.4 fl (7.4-10.4); MONOCYTES % 6.2 % (2.0-8.0); NEUTROPHILS % 77.7 % (40.0-76.0); PLATELET 154 x1000/uL (130-400); RED BLOOD CELL COUNT 2.72 mill/uL (4.7-6.1); RED CELL DISTRIBUTION WIDTH 15.5 % (11.6-14.6)
[2019-08-29] MEDS: INSULIN LISPRO 100 UNITS/ML SUBCUT SCH ×3 (07:40→16:52)
[2019-08-29 08:00] VITALS: BP 105/48
[2019-08-29] MEDS: CHOLECALCIFEROL (D3) 1000 UNIT TABLET PO SCH (08:33)
[2019-08-29] MEDS: FERROUS SULFATE 325MG TABLET PO SCH ×3 (08:33→17:16)
[2019-08-29] MEDS: TAMSULOSIN HCL 0.4MG SR CAPSULE PO SCH (08:34)
[2019-08-29] MEDS: FAMOTIDINE 20MG TABLET PO SCH (08:34)
[2019-08-29] MEDS: CEFTAZIDIME PENTAHYDRATE 1 G in DEXTROSE 5% WATER 50 ML IV SCH ×2 (08:34→17:00)
[2019-08-29] MEDS: DORZOLAM/TIMOLOL 2.23/0.68% OPHTH DROPS 10ML BOTHEYE SCH (08:34)
[2019-08-29] MEDS: ASCORBIC ACID 500 MG TABLET PO SCH (08:34)
[2019-08-29 11:58] VITALS: BP 109/55
[2019-08-29 15:14] VITALS: BP 109/55
[2019-08-29] MEDS: SODIUM CHLORIDE 0.9% 1,000 ML IV SCH (16:19)
== END 2019-08-29 20:55 | DRG 270 ==
LOC: 7WST 22:17 → 3WST 08-24 15:11 → 8WST 08-25 23:44
PROVIDERS: ADMIT Internal Medicine; ATTEND Internal Medicine
PROC: 04PY0YZ Removal of Other Device from Lower Artery, Open Approach (ICD-10-PCS; principal; 2019-08-24)
PROC: 041 Lower Arteries, Bypass (ICD-10-PCS; 2019-08-24)
PROC: 04BK0ZZ Excision of Right Femoral Artery, Open Approach (ICD-10-PCS; 2019-08-24)
PROC: 30233N1 Transfusion of Nonautologous Red Blood Cells into Peripheral Vein, Percutaneous Approach (ICD-10-PCS; 2019-08-24)
PROC: 02HV33Z Insertion of Infusion Device into Superior Vena Cava, Percutaneous Approach (ICD-10-PCS; 2019-08-25)
PROC: B5181ZA Fluoroscopy of Superior Vena Cava using Low Osmolar Contrast, Guidance (ICD-10-PCS; 2019-08-25)
PROC: B548ZZA Ultrasonography of Superior Vena Cava, Guidance (ICD-10-PCS; 2019-08-25)
DX: T82.7XXA Infection and inflammatory reaction due to other cardiac and vascular devices, implants and grafts, initial encounter (principal); A41.9 Sepsis, unspecified organism; I50.23 Acute on chronic systolic (congestive) heart failure; I97.618 Postprocedural hemorrhage of a circulatory system organ or structure following other circulatory system procedure; G93.40 Encephalopathy, unspecified; I13.0 Hypertensive heart and chronic kidney disease with heart failure and stage 1 through stage 4 chronic kidney disease, or unspecified chronic kidney disease; N39.0 Urinary tract infection, site not specified; N17.9 Acute kidney failure, unspecified; T83.83XA Hemorrhage due to genitourinary prosthetic devices, implants and grafts, initial encounter; E87.5 Hyperkalemia; E11.22 Type 2 diabetes mellitus with diabetic chronic kidney disease; E11.51 Type 2 diabetes mellitus with diabetic peripheral angiopathy without gangrene; I25.10 Atherosclerotic heart disease of native coronary artery without angina pectoris; N18.3 Chronic kidney disease, stage 3 (moderate); N40.0 Benign prostatic hyperplasia without lower urinary tract symptoms; Z89.611 Acquired absence of right leg above knee; Z95.1 Presence of aortocoronary bypass graft; Z98.62 Peripheral vascular angioplasty status; Y83.8 Other surgical procedures as the cause of abnormal reaction of the patient, or of later complication, without mention of misadventure at the time of the procedure; Y92.89 Other specified places as the place of occurrence of the external cause; D50.0 Iron deficiency anemia secondary to blood loss (chronic)
CPT/HCPCS: 36415; 36573; 36600; 80048; 80061; 80202; 80355; 81003; 82140; 82375; 82805; 82962; 83036; 84153; 84439; 84443; 85014; 85018; 85049; 85384; 86850; 86900; 86920; 87070; 87075; 87077; 87186; 88304; 93005; 93306; 97162; C1725; C1768; C1884; J0330; J0690; J0692; J0713; J1450; J1644; J1815; J2060; J2185; J2250; J2270; J2370; J2405; J2704; J2710; J2720; J2765; J3010; J3370; J3490; J7030; J7040; J7042; J7050; J7060; P9016; G0103